=== PATIENT | female | born 1945 | race African-American/Black ===

== ENCOUNTER 2019-03-04 16:01 | Inpatient (IN) | payer OTHER ==
[~2019-03-04] VITALS: Ht 162.6 cm; Wt 77.1 kg
[2019-03-04 16:01] VITALS: BP 203/101
[~2019-03-04 16:01] MED LIST: FLEXERIL PO; NORCO 5-325 TA1 EACH PO
[2019-03-04 16:17] LABS: ABSOLUTE NEUTROPHILS 10.6 thou/uL (1.4-8.2); BASOPHILS 0.3 % (0.0-2.0); EOSINOPHILS 0.1 % (0.0-3.0); HEMATOCRIT 42.6 % (37.0-47.0); HEMOGLOBIN 14.3 gm/dL (12.0-15.0); LYMPHOCYTES 14.1 % (24.0-44.0); MCH 27.5 pg (26.0-34.0); MCHC 33.5 g/dL (28.0-37.0); MCV 82.1 fL (80.0-100.0); MONOCYTES 4.8 % (1.0-8.0); PLATELET COUNT 230 thou/uL (150-400); POLYS 80.7 % (36.0-66.0); RBC 5.19 mil/uL (4.20-5.00); RDW 14.2 % (10.5-14.5); WBC 13.2 thou/uL (4.0-11.0)
[2019-03-04 16:24] LABS: ANION GAP 9 mmol/L (7-16); BUN 19 mg/dL (7-18); CALCIUM 9.7 mg/dL (8.5-10.1); CHLORIDE 102 mmol/L (98-107); CO2 27 mmol/L (21-32); CREATININE 1.1 mg/dL (0.6-1.0); GLUCOSE 172 mg/dL (74-106); POTASSIUM 4.6 mmol/L (3.5-5.1); SODIUM 138 mmol/L (136-145)
[2019-03-04] MEDS ORDERED: CRESTOR10 MG PO (16:30)
[2019-03-04] MEDS ORDERED: LISINOPRIL10 MG PO (16:30)
[2019-03-04] MEDS ORDERED: JANUVIA25 MG PO (16:30)
[2019-03-04 16:35] LABS: ALBUMIN 4.1 g/dL (3.4-5.0); SGOT 23 U/L (15-37); SGPT 17 U/L (30-65); TOTAL BILIRUBIN 0.6 mg/dL (<0.1-1.0); TROPONIN-I <0.06 ng/mL (<0.06)
[2019-03-04 17:51] VITALS: BP 174/81
[2019-03-04 18:16] VITALS: BP 169/93
[2019-03-04 19:00] VITALS: BP 198/94
[2019-03-05 04:00] VITALS: BP 149/69
[2019-03-05 05:11] LABS: HEMATOCRIT 39.2 % (37.0-47.0); HEMOGLOBIN 13.2 gm/dL (12.0-15.0); MCH 27.6 pg (26.0-34.0); MCHC 33.6 g/dL (28.0-37.0); MCV 82.1 fL (80.0-100.0); RBC 4.77 mil/uL (4.20-5.00); RDW 13.8 % (10.5-14.5)
[2019-03-05 05:21] LABS: CALCIUM 9.3 mg/dL (8.5-10.1); CREATININE 1.1 mg/dL (0.6-1.0); POTASSIUM 4.5 mmol/L (3.5-5.1)
--- NOTE | 2019-03-05 06:35 | NUR ---
PATIENTS CARES WERE ASSUMED AT THE TRANSFER FROM ER. PATIENT WAS ASSESSED AND MEDS WERE PASSED. PATIENT WAS UPSET BECAUSE THE AIDE LAST NIGHT STATED SHE WAS UPSET BECAUSE SHE HAD NOT SEEN A NURSE. DAY SHIFT PASSED THIS ADMIT TO NIGHTS AND HER ADMISSION WAS EXPEDITED. HOURLY ROUNDING WAS DONE. THE BED IS IN A LOW AND LOCKED POSITION.
[2019-03-05 08:00] VITALS: BP 193/89
--- NOTE | 2019-03-05 12:52 | EKG ---
[address] [address] ELECTROCARDIOGRAM REPORT Name: SVETLANA KOTHARI Room #: 201-P ADM IN M.R.#: [id number] ������������������ Admission: 03/04/19 ������������������ Attend Phys: Ezequiel Andrews MD Discharge: ������������������ Date of : 47 Report #: [id number] ����������������������������������������������������������������� [id number] THIS REPORT FOR: //name// [facility] ED Test Date: 2019-03-04 Test Time: 16:00:34 Pat Name: SVETLANA KOTHARI Department: Room: 201 P Gender: F Commercial Front Load Operator: WILFREDO : 1945 Requested By: Sylvia Moss Order Number: [id number] MD: Freddy Joseph Measurements Intervals [place] Rate: 105 P: 65 OK: 186 QRS: -23 QRSD: 85 T: 56 QT: 325 QTc: 430 Interpretive Statements Sinus tachycardia Abnormal R-wave progression, early transition Baseline wander in lead(s) II,III,aVR,aVF Compared to ECG 12/18/2013 14:40:30 No significant change was found Electronically Signed On 03-05-2019 12:51:56 CDT by Freddy Joseph [email or web address] ��������������������������������������������� <ELECTRONICALLY SIGNED> ���������������������������������������� By: Freddy Joseph MD, [facility] ��������������������������������������������� 03/05/19 1251 1600 1600 Freddy Joseph MD, [facility] /EPI
[2019-03-05 13:25] VITALS: BP 181/94
--- NOTE | 2019-03-05 16:10 | NUR ---
ASSESSMENT CHARTED. PT ALERT AND ORIENTED. VSS. RECEIVED SCHEDULED PAIN MED WITH PARTIAL RELIEF. NO CONCERNS AT THIS TIME. WILL CONTINUE TO MONITOR.
[2019-03-05 16:30] VITALS: BP 150/65
[2019-03-05] MEDS ORDERED: TRAMADOL 50 MG50 MG PO (16:46)
[2019-03-05 20:00] VITALS: BP 152/83
[2019-03-05 22:20] VITALS: BP 151/74
[2019-03-06 04:50] VITALS: BP 164/88
--- NOTE | 2019-03-06 05:38 | NUR ---
Pt transferred from 2N @ 2129. A/OX4,VSS. Up with SBA.Continent of B&B.Pt did complain of non-cardiac chest pain/left shoulder pain, financial underwriter discussed with pt if she has had any stressors recently and possibly producing a lot of stomach acids which could be causing the pain. Pt reported she had in family 3 months in a row and agreeable to trying out an anti-acid. Order obtained from ROOF DES[employer]ER for Protonix daily. Resting quietly with no distress noted at this time.
[2019-03-06 08:00] VITALS: BP 149/83
--- NOTE | 2019-03-06 10:31 | NUR ---
ASSESMENT-PT'S SON LIVES WITH HER IN A [place]-LEVEL HOME. PT HAS 6 STEPS TO BEDROOM/BATHROOM LEVEL THEN 8 STEPS TO LAUNDRY. PT IS INSEPENDENT OF ASLS AND AMBULATION. PT DRIVES NORMALLY. PT VOICES NO DC NEEDS AT THIS POINT. FOLLOWING TO ASSIST WITH DC PLANNING.
[2019-03-06] MEDS ORDERED: MEDROLDOSEPACK PO (11:40)
[2019-03-06] MEDS ORDERED: LIORESAL 10 MG10 MG PO (11:40)
[2019-03-06] MEDS ORDERED: ACETAMINOPHEN325 M1 PO (11:40)
[2019-03-06] MEDS ORDERED: TRAMADOL 50 MG50 MG PO (12:49)
[2019-03-06 12:54] VITALS: BP 1149/83
--- NOTE | 2019-03-06 13:40 | NUR ---
Assumed pt care at 7am.Pt in and out of bed to bathroom independently. Assessment completed.vss.am meds given with breakfast and well tolerated. Toradol iv given for generalized pain and complete relief noted.Dr Rice here,dc order noted.Dc summary compiled and reviewed with pt and son.Saline lock dc'd.Rx and dc summary copy given prior to pt dc home at 1340 in stable condition.
== END 2019-03-06 13:50 | disposition home or self-care (01) | DRG 74 ==
LOC: ER 16:01 → 2N 17:18 → EROBS 17:18 → 2N 18:16 → 4E 03-05 21:43 → ENTRNSPT 03-06 13:42 → EDTRNSPTSTS 03-06 13:44 → 4E 03-06 13:50
PROVIDERS: Emergency Medicine; ADMIT Hospitalist
DX: M54.12 Radiculopathy, cervical region (principal); M47.892 Other spondylosis, cervical region; I16.0 Hypertensive urgency; R07.89 Other chest pain; E11.9 Type 2 diabetes mellitus without complications; I10 Essential (primary) hypertension; Z90.710 Acquired absence of both cervix and uterus; Z88.1 Allergy status to other antibiotic agents
CPT/HCPCS: 10081; 10783